=== PATIENT | female | born 2000 | race Caucasian/White ===

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

== ENCOUNTER 2021-08-25 18:08 | Inpatient (IN) | payer BC ==
[2021-08-25] MEDS ORDERED: Tranexamic Acid 1,000 MG in Sodium Chloride 0.9% 100 ML IV PRN (20:18)
[2021-08-25] MEDS ORDERED: Water For Irrigation,Sterile 1,000 ML Container IRR PRN (20:18)
[2021-08-25] MEDS ORDERED: Misoprostol 200 MCG Tab PO PRN (20:18)
[2021-08-25] MEDS ORDERED: Butorphanol 1 MG/ML SDV IVPUSH PRN (20:18)
[2021-08-25] MEDS ORDERED: Nalbuphine 10 MG/1 ML Vial IVPUSH PRN (20:18)
[2021-08-25] MEDS ORDERED: Sodium Chloride 0.9% 10 ML Syringe FLUSH PRN (20:18)
[2021-08-25] MEDS ORDERED: Sodium Chloride 0.9% 2.5 ML Syringe FLUSH PRN (20:18)
[2021-08-25] MEDS ORDERED: Lidocaine 1% 50 ML MDV INJECT PRN (20:18)
[2021-08-25] MEDS ORDERED: Sodium Chloride 0.9% 10 ML SDV IV PRN (20:18)
[2021-08-25] MEDS ORDERED: Methylergonovine 0.2 MG/1 ML Amp IM PRN (20:18)
[2021-08-25] MEDS ORDERED: Ondansetron 4 MG/2 ML SDV IVPUSH PRN (20:18)
[2021-08-25] MEDS ORDERED: Carboprost Tromethamine 250 MCG/1 ML Amp IM PRN (20:18)
[2021-08-25] MEDS ORDERED: Oxytocin/0.9 % Sodium Chloride 30 UNIT/500 ML BAG IV SCH (20:30)
[2021-08-25] MEDS ORDERED: Lactated Ringers 1,000 ML IV SCH (20:30)
[2021-08-25] MEDS ORDERED: Ropivacaine HCl/PF 200 ML ONE (20:42)
--- NOTE | 2021-08-25 21:05 | PCM.LDHP ---
L&D History of Present Illness - General Date of Service: 08/25/21 Admit Problem/Dx: Patient Status Order with Admit Dx/Problem 08/25/21 18:47 Patient Status [ADT] Routine 08/25/21 20:19 Patient Status [ADT] Routine Admission Diagnosis/Problem Admission Diagnosis/Problem Source of Information: Patient History Limitations: Reports: No Limitations - History of Present Illness Introduction:: 21yo at 39w5d GA presented with contractions for the past 7hrs. Denies VB or LOF. Reports good FM. c/b mild intermittent asthma and Rubella nonimmune She is A+, abs screen neg, RPR NR, HIV neg, HBsAg neg, GC/Chlam neg, GBS neg. On arrival, nurse performed a SVE and reported /-3. After 2 hrs of observat ion, SVE was reportedly 5cm. - Related Data Allergies/Adverse Reactions: Allergies Allergy/AdvReac Type Severity Reaction Status Date / Time No Known Allergies Allergy Verified 12/24/14 00:22 Home Medications: Home Meds Methylphenidate [Concerta] 54 mg PO QAM 12/24/14 [History] buPROPion [Wellbutrin XL] 300 mg PO QAM 12/24/14 [History] H&P Review of Systems - Review of Systems: Review Of Systems: See Below General: Reports: No Symptoms HEENT: Reports: No Symptoms Pulmonary: Reports: No Symptoms Cardiovascular: Reports: No Symptoms Gastrointestinal: Reports: No Symptoms Genitourinary: Reports: No Symptoms Musculoskeletal: Reports: No Symptoms Skin: Reports: No Symptoms Psychiatric: Reports: No Symptoms Neurological: Reports: No Symptoms Hematologic/Lymphatic: Reports: No Symptoms Immunologic: Reports: No Symptoms L&D Exam - Exam Exam: See Below - Vital Signs Weight: 82.554 kg - OB Specific Contraction Intensity: Moderate to Strong Movement: Active Heart Tones: Present Heart Rate (FHR) Variability: Moderate (6-25 bpm) Presentation: Vertex Estimated Weight: 7lbs - Alvarez Score Alvarez Score Cervix Position: Midposition Alvarez Score Consistency: Medium Alvarez Score Effacement: 51-70% Alvarez Score Dilation: > 5 cm Alvarez Score 's Station: -3 Alvarez Score Total: 7 - Exam General: Alert, Oriented HEENT: Mucosa Moist & [place] Lungs: Normal Respiratory Effort Cardiovascular: Regular Rate GI/Abdominal Exam: Soft, Non-Tender Extremities: Normal Inspection Psychiatric: Alert, Normal Affect, Normal Mood - Patient Data Lab Results Last 24 hrs: Laboratory Results - last 24 hr 08/25/21 Range/Units 20:10 WBC 10.46 (4.0-11.0) K/uL RBC 3.96 L (4.30-5.90) M/uL Hgb 11.8 L (12.0-16.0) g/dL Hct 34.7 L (36.0-46.0) % MCV 87.6 (80.0-98.0) fL MCH 29.8 (27.0-32.0) pg MCHC 34.0 (31.0-37.0) g/dL RDW Std Deviation 44.3 (28.0-62.0) fl RDW Coeff of Soraida 14 (11.0-15.0) % Plt Count 195 (150-400) K/uL MPV 12.60 H (7.40-12.00) fL Nucleated RBC % 0.0 /100WBC Nucleated RBCs # 0 K/uL Result Diagrams: 08/25/21 20:10 - Problem List (1) Term SNOMED Code(s): 37784113 ICD Code: Z34.90 - ENCNTR FOR SUPRVSN OF NORMAL , UNSP, UNSP TRIMESTER Status: Acute Current Visit: Yes (2) Active labor at term SNOMED Code(s): 46513052 ICD Code: TYP7512 - Status: Acute Current Visit: Yes Problem List Initiated/Reviewed/Updated: Yes Orders Last 24hrs: Active Orders 24 hr Category Date Time Status Patient Status [ADT] Routine ADT 08/25/21 18:47 Active Patient Status [ADT] Routine ADT 08/25/21 20:19 Active Heart Tones [RC] CONTINUOUS Care 08/25/21 20:19 Active Non Stress Test [RC] PER UNIT ROUTINE Care 08/25/21 18:47 Active Non Stress Test [RC] PER UNIT ROUTINE Care 08/25/21 20:19 Active May Shower [RC] ASDIRECTED Care 08/25/21 20:19 Active Notify Provider [RC] PRN Care 08/25/21 20:19 Active Up ad Usha [RC] ASDIRECTED Care 08/25/21 18:47 Active Up ad Usha [RC] ASDIRECTED Care 08/25/21 20:19 Active Vaginal Exam [RC] Click to Edit Care 08/25/21 18:47 Active Vaginal Exam [RC] PRN Care 08/25/21 20:19 Active Vital Signs [RC] PER UNIT ROUTINE Care 08/25/21 18:47 Active Vital Signs [RC] PER UNIT ROUTINE Care 08/25/21 20:19 Active CORONAVIRUS COVID-19 SYLVESTER [MOLEC] Stat Lab 08/25/21 20:15 Received RPR (SYPHILIS SERO) W/ RFLX [REF] Stat Lab 08/25/21 20:10 Received TYPE AND SCREEN [BBK] Stat Lab 08/25/21 20:10 Received Butorphanol [Stadol] Med 08/25/21 20:18 Active 1 mg IVPUSH Q1H PRN Carboprost Tromethamine [Hemabate DS] Med 08/25/21 20:18 Active 250 mcg IM ASDIRECTED PRN Lactated Ringers [Ringers, Lactated] 1,000 ml Med 08/25/21 20:30 Active IV ASDIRECTED Lidocaine 1% [Xylocaine 1%] Med 08/25/21 20:18 Active 50 ml INJECT ONETIME PRN Methylergonovine [Methergine] Med 08/25/21 20:18 Active 0.2 mg IM ASDIRECTED PRN Nalbuphine [Nubain] Med 08/25/21 20:18 Active 10 mg IVPUSH Q1H PRN Ondansetron [Zofran] Med 08/25/21 20:18 Active 4 mg IVPUSH Q4H PRN Oxytocin/0.9 % Sodium Chloride [Oxytocin 30 Unit in NS Med 08/25/21 20:30 Active 0.9% 500 ML Premix] 30 unit in 500 ml IV TITRATE Sodium Chloride 0.9% [Normal Saline] Med 08/25/21 20:18 Active 10 ml IV ASDIRECTED PRN Sodium Chloride 0.9% [Saline Flush] Med 08/25/21 20:18 Active 10 ml FLUSH ASDIRECTED PRN Sodium Chloride 0.9% [Saline Flush] Med 08/25/21 20:18 Active 2.5 ml FLUSH ASDIRECTED PRN Tranexamic Acid [Cyklokapron] 1,000 mg Med 08/25/21 20:18 Active Sodium Chloride 0.9% [Normal Saline] 100 ml IV ONETIME Water For Irrigation,Sterile [Sterile Water for Med 08/25/21 20:18 Active Irrigation] 1,000 ml IRR ASDIRECTED PRN miSOPROStoL [Cytotec] Med 08/25/21 20:18 Active 200 mcg PO ONETIME PRN Scalp Electrode [WOMSER] Per Unit Routine Oth 08/25/21 20:19 Ordered Peripheral IV Insertion Adult [OM.PC] Routine Oth 08/25/21 20:19 Ordered Resuscitation Status Routine Resus Stat 08/25/21 18:46 Ordered Medication Orders Butorphanol Tartrate (Butorphanol 1 Mg/Ml Sdv) 1 mg IVPUSH Q1H PRN PRN Reason: Pain (severe 7-10) Carboprost Tromethamine (Carboprost Tromethamine 250 Mcg/1 Ml Amp) 250 mcg IM ASDIRECTED PRN PRN Reason: Post Hemorrhage Lactated Ringer's (Ringers, Lactated) 1,000 mls @ 150 mls/hr IV ASDIRECTED ANCA Last Admin: 08/25/21 20:45 Dose: 150 mls/hr Documented by: MANAS Oxytocin/Sodium Chloride (Oxytocin 30 Unit In Ns 0.9% 500 Ml Premix) 30 unit in 500 mls @ 999 mls/hr IV TITRATE [facility] Tranexamic Acid 1,000 mg/ (Sodium Chloride) 110 mls @ 660 mls/hr IV ONETIME PRN PRN Reason: Bleeding Lidocaine HCl (Lidocaine 1% 50 Ml Mdv) 50 ml INJECT ONETIME PRN PRN Reason: Laceration repair Methylergonovine Maleate (Methylergonovine 0.2 Mg/1 Ml Amp) 0.2 mg IM ASDIRECTED PRN PRN Reason: Post Hemorrhage Misoprostol (Misoprostol 200 Mcg Tab) 200 mcg PO ONETIME PRN PRN Reason: Post Hemorrhage Nalbuphine HCl (Nalbuphine 10 Mg/1 Ml Vial) 10 mg IVPUSH Q1H PRN PRN Reason: Pain (severe 7-10) Ondansetron HCl (Ondansetron 4 Mg/2 Ml Sdv) 4 mg IVPUSH Q4H PRN PRN Reason: Nausea/Vomiting Sodium Chloride (Sodium Chloride 0.9% 10 Ml Syringe) 10 ml FLUSH ASDIRECTED PRN PRN Reason: Keep Vein Open Sodium Chloride (Sodium Chloride 0.9% 2.5 Ml Syringe) 2.5 ml FLUSH ASDIRECTED PRN PRN Reason: Keep Vein Open Sodium Chloride (Sodium Chloride 0.9% 10 Ml Sdv) 10 ml IV ASDIRECTED PRN PRN Reason: IV Use Sterile Water (Water For Irrigation,Sterile 1,000 Ml Container) 1,000 ml IRR ASDIRECTED PRN PRN Reason: delivery Assessment/Plan Comment:: 21yo at 39w5d [place] admitted in active labor c/b mild intermittent asthma and Rubella nonimmune. Alvarez score of 7, cat 1 tracing. P: Expectant management Epidural PRN Anticipating Will offer MMR vaccine
[2021-08-25] MEDS ORDERED: ePHEDrine 50 MG/ML SDV IVPUSH PRN (21:19)
[2021-08-25] MEDS ORDERED: Ropivacaine/PF 400 MG/200 ML PCA EPIDUR SCH (21:30)
--- NOTE | 2021-08-25 23:08 | PCM.PREANE ---
Preanesthetic Assessment - Procedure Proposed Procedure: Labor Epidural - Anesthesia/Transfusion/Family Hx Anesthesia History: Prior Anesthesia Without Reaction Family History of Anesthesia Reaction: No Transfusion History: No Prior Transfusion(s) - Review of Systems General: No Symptoms Pulmonary: Other (Asthma requiring inhaler use) Cardiovascular: No Symptoms Gastrointestinal: Other (GERD with ) Neurological: No Symptoms Other: Reports: None - Physical Assessment NPO Status Date: 08/25/21 NPO Status Time: 20:00 Height: 1.68 m Weight: 82.554 kg ASA Class: 2 Mental Status: Alert & Oriented x3 Airway Class: Mallampati = 2 Dentition: Reports: Normal Dentition (Toungue ring) Thyro-Mental Finger Breadths: 3 Mouth Opening Finger Breadths: 3 ROM/Head Extension: Full Lungs: Clear to Auscultation, Normal Respiratory Effort Cardiovascular: Regular Rate, Regular Rhythm, No Murmurs - Lab Values: Laboratory Last Values WBC 10.46 K/uL (4.0-11.0) 08/25/21 20:10 RBC 3.96 M/uL (4.30-5.90) L 08/25/21 20:10 Hgb 11.8 g/dL (12.0-16.0) L 08/25/21 20:10 Hct 34.7 % (36.0-46.0) L 08/25/21 20:10 MCV 87.6 fL (80.0-98.0) 08/25/21 20:10 MCH 29.8 pg (27.0-32.0) 08/25/21 20:10 MCHC 34.0 g/dL (31.0-37.0) 08/25/21 20:10 RDW Std Deviation 44.3 fl (28.0-62.0) 08/25/21 20:10 RDW Coeff of Soraida 14 % (11.0-15.0) 08/25/21 20:10 Plt Count 195 K/uL (150-400) 08/25/21 20:10 MPV 12.60 fL (7.40-12.00) H 08/25/21 20:10 Nucleated RBC % 0.0 /100WBC 08/25/21 20:10 Nucleated RBCs # 0 K/uL 08/25/21 20:10 SARS-CoV-2 RNA (SYLVESTER) NEGATIVE (NEGATIVE) 08/25/21 20:15 Blood Type A POSITIVE 08/25/21 20:10 Antibody Screen NEGATIVE 08/25/21 20:10 - Allergies Allergies/Adverse Reactions: Allergies Allergy/AdvReac Type Severity Reaction Status Date / Time No Known Allergies Allergy Verified 12/24/14 00:22 - Blood Blood Available: Yes Product(s) Available: PRBC PreAnesthesia Questionnaire - HOME MEDS Home Medications: Home Meds Methylphenidate [Concerta] 54 mg PO QAM 12/24/14 [History] buPROPion [Wellbutrin XL] 300 mg PO QAM 12/24/14 [History] - CURRENT (IN HOUSE) MEDS Current Meds: Current Medications Butorphanol Tartrate (Butorphanol 1 Mg/Ml Sdv) 1 mg IVPUSH Q1H PRN PRN Reason: Pain (severe 7-10) Carboprost Tromethamine (Carboprost Tromethamine 250 Mcg/1 Ml Amp) 250 mcg IM ASDIRECTED PRN PRN Reason: Post Hemorrhage Ephedrine Sulfate (Ephedrine 50 Mg/Ml Sdv) 10 mg IVPUSH Q1M PRN PRN Reason: Hypotension Lactated Ringer's (Ringers, Lactated) 1,000 mls @ 150 mls/hr IV ASDIRECTED [facility] Last Admin: 08/25/21 20:45 Dose: 150 mls/hr Documented by: Oxytocin/Sodium Chloride (Oxytocin 30 Unit In Ns 0.9% 500 Ml Premix) 30 unit in 500 mls @ 999 mls/hr IV TITRATE [facility] Tranexamic Acid 1,000 mg/ (Sodium Chloride) 110 mls @ 660 mls/hr IV ONETIME PRN PRN Reason: Bleeding Lidocaine HCl (Lidocaine 1% 50 Ml Mdv) 50 ml INJECT ONETIME PRN PRN Reason: Laceration repair Methylergonovine Maleate (Methylergonovine 0.2 Mg/1 Ml Amp) 0.2 mg IM ASDIRECTED PRN PRN Reason: Post Hemorrhage Miscellaneous Medication (Phenylephrine Hcl In 0.9% Nacl 1 Mg/10 Ml Syringe) 0.1 mg IVPUSH Q1M PRN PRN Reason: Hypotension Misoprostol (Misoprostol 200 Mcg Tab) 200 mcg PO ONETIME PRN PRN Reason: Post Hemorrhage Nalbuphine HCl (Nalbuphine 10 Mg/1 Ml Vial) 10 mg IVPUSH Q1H PRN PRN Reason: Pain (severe 7-10) Ondansetron HCl (Ondansetron 4 Mg/2 Ml Sdv) 4 mg IVPUSH Q4H PRN PRN Reason: Nausea/Vomiting Ropivacaine (Ropivacaine/Pf 400 Mg/200 Ml Surgical Corsetier) 400 mg EPIDUR ASDIRECTED ANCA Sodium Chloride (Sodium Chloride 0.9% 10 Ml Syringe) 10 ml FLUSH ASDIRECTED PRN PRN Reason: Keep Vein Open Sodium Chloride (Sodium Chloride 0.9% 2.5 Ml Syringe) 2.5 ml FLUSH ASDIRECTED PRN PRN Reason: Keep Vein Open Sodium Chloride (Sodium Chloride 0.9% 10 Ml Sdv) 10 ml IV ASDIRECTED PRN PRN Reason: IV Use Sterile Water (Water For Irrigation,Sterile 1,000 Ml Container) 1,000 ml IRR ASDIRECTED PRN PRN Reason: delivery Discontinued Medications Ropivacaine (Naropin 0.2%) Confirm Administered Dose 200 mls @ as directed .ROUTE .[facility] Stop: 08/25/21 20:43
--- NOTE | 2021-08-25 23:21 | PCM.SN.2 ---
Time Documentation - Pre-Procedure Checklist Attending Provider Aware: Yes Chart Reviewed: Yes Consent Signed: Yes Labs Reviewed: Yes VS/FHR Reviewed: Yes Patient Identification Confirmation Method: Reports: Chart Visual, Verbal Patient Pt an Appropriate Candidate for the Planned Anesthesia: Yes Alternatives and Risks of Anesthesia Discussed w Pt/Guardian: Yes - Procedure Procedure Start Date: 08/18/21 Procedure Start Time: 20:[address]: Reports: Blood Pressure, Heart Rate, SPO2 Functional IV: Yes Safety Measures: Reports: Patient Identified, Procedure Verified, Site Verified, Procedure Time Out Patient Position: Reports: Sitting Prep: Reports: Betadine x3 Local Anesthetic: Reports: Intradermal Wheal w Lidocaine 1% (3 ml) Regional Placement Level: Reports: L3-4 Needle: Reports: 17 g Touhy Approach: Reports: Midline Technique: Reports: ROSE Glass Syringe ROSE Needle Depth (cm): 4 cm Parasthesia: Reports: None Fluid Obtained: Reports: None Catheter Depth at Skin (cm): 13 cm Test Dose Time: 21:07 Test Dose Medication: Reports: Lidocaine 1.5% w Epinephrine 1:200,000 (5ml) Test Dose Response: Reports: Negative Loading Dose Time: 21:14 Loading Dose Medication: Ropivicaine 0.2% Loading Dose Patient Position: Supine Continuous Infusion Start Time: 21:15 Continuous Infusion Medication: Ropivicaine 0.2% Continuous Infusion Rate: 12 Continuous Infusion PCS Bolus Option: 6 Continuous Infusion Lockout Dose (cc/hr): 20 Patient Position Post Placement: Reports: Supline/LEONARDO Post-procedure Pain Level: 2 Level Achieved: t4 VS and FHR Monitored in Unit Post Placement: Yes Procedure End Date: 08/25/21 Procedure End Time: 21:15 Procedure Comment: Sterile Technique used throughout
--- NOTE | 2021-08-25 23:21 | PCM.POSTAN ---
POST ANESTHESIA ASSESSMENT - MENTAL STATUS Mental Status: Alert, Oriented - RESPIRATORY Respiratory Status: Respiratory Rate WNL, Airway Patent, O2 Saturation Stable - CARDIOVASCULAR CV Status: Pulse Rate WNL, Blood Pressure Stable - GASTROINTESTINAL GI Status: No Symptoms - POST OP HYDRATION Hydration Status: Adequate & Stable
--- NOTE | 2021-08-26 02:38 | PCM.DEL ---
L & D Note - General Info Date of Service: 08/26/21 Mother's Due Date: 08/27/21 - Delivery Note Labor: Spontaneous Delivery Outcome: Livebirth Infant Delivery Method: Spontaneous Vaginal Delivery-Single Presentation: Vertex Nuchal Cord: Present, Reduced Anesthesia Type: Epidural Amniotic Fluid Description: Clear Episiotomy Type: None Laceration: Periurethral Suture type: Vicryl Suture size: 4-0 Placenta: Intact, Spontaneous Cord: 3 Vessels Estimated Blood Loss: 300 Resuscitation Needed: No : Stimulated Score 1 min: 8 Score 5 min: 9 Delivery Comments (Free Text/Narrative):: of a live male, 8lb 6oz and Apgars 8/9. Delivered SUJATA, nuchal cord present and reduced, No meconium. Vertex and body delivered without difficulty. Cord clamped and cut. Nose and mouth bulb suctioned; Baby placed on Mom's abdomen. Placenta delivered spontaneously, intact. Fundus firm, minimal bleeding. Placenta appears intact with 3 vessel cord. Perineum and vagina inspected small periurethral laceration repaired with 4-0 suture suture in the usual fashion. EBL 300cc. Hemostasis. Patient tolerated procedure well, recovering in LDR. Infant by her side. - General Info Date of Service: 08/26/21 Admission Dx/Problem (Free Text): Patient Status Order with Admit Dx/Problem 08/25/21 18:47 Patient Status [ADT] Routine 08/25/21 20:19 Patient Status [ADT] Routine Admission Diagnosis/Problem Admission Diagnosis/Problem Subjective Update: Mom and baby are doing well. Functional Status: Reports: Pain Controlled - Review of Systems General: Reports: No Symptoms HEENT: Reports: No Symptoms Pulmonary: Reports: No Symptoms Cardiovascular: Reports: No Symptoms Gastrointestinal: Reports: No Symptoms Genitourinary: Reports: No Symptoms Musculoskeletal: Reports: No Symptoms Skin: Reports: No Symptoms Psychiatric: Reports: No Symptoms - Patient Data Weight - Most Recent: 82.554 kg Lab Results Last 24 Hours: Laboratory Results - last 24 hr 08/25/21 08/25/21 08/25/21 Range/Units 20:10 20:10 20:15 WBC 10.46 (4.0-11.0) K/uL RBC 3.96 L (4.30-5.90) M/uL Hgb 11.8 L (12.0-16.0) g/dL Hct 34.7 L (36.0-46.0) % MCV 87.6 (80.0-98.0) fL MCH 29.8 (27.0-32.0) pg MCHC 34.0 (31.0-37.0) g/dL RDW Std Deviation 44.3 (28.0-62.0) fl RDW Coeff of Soraida 14 (11.0-15.0) % Plt Count 195 (150-400) K/uL MPV 12.60 H (7.40-12.00) fL Nucleated RBC % 0.0 /100WBC Nucleated RBCs # 0 K/uL SARS-CoV-2 RNA (SYLVESTER) NEGATIVE (NEGATIVE) Blood Type A POSITIVE Antibody Screen NEGATIVE Med Orders - Current: Current Medications Butorphanol Tartrate (Butorphanol 1 Mg/Ml Sdv) 1 mg IVPUSH Q1H PRN PRN Reason: Pain (severe 7-10) Carboprost Tromethamine (Carboprost Tromethamine 250 Mcg/1 Ml Amp) 250 mcg IM ASDIRECTED PRN PRN Reason: Post Hemorrhage Ephedrine Sulfate (Ephedrine 50 Mg/Ml Sdv) 10 mg IVPUSH Q1M PRN PRN Reason: Hypotension Lactated Ringer's (Ringers, Lactated) 1,000 mls @ 150 mls/hr IV ASDIRECTED [facility] Last Admin: 08/25/21 20:45 Dose: 150 mls/hr Documented by: Oxytocin/Sodium Chloride (Oxytocin 30 Unit In Ns 0.9% 500 Ml Premix) 30 unit in 500 mls @ 999 mls/hr IV TITRATE [facility] Last Admin: 08/26/21 01:50 Dose: 999 mls/hr Documented by: Tranexamic Acid 1,000 mg/ (Sodium Chloride) 110 mls @ 660 mls/hr IV ONETIME PRN PRN Reason: Bleeding Lidocaine HCl (Lidocaine 1% 50 Ml Mdv) 50 ml INJECT ONETIME PRN PRN Reason: Laceration repair Methylergonovine Maleate (Methylergonovine 0.2 Mg/1 Ml Amp) 0.2 mg IM ASDIRECTED PRN PRN Reason: Post Hemorrhage Miscellaneous Medication (Phenylephrine Hcl In 0.9% Nacl 1 Mg/10 Ml Syringe) 0.1 mg IVPUSH Q1M PRN PRN Reason: Hypotension Misoprostol (Misoprostol 200 Mcg Tab) 200 mcg PO ONETIME PRN PRN Reason: Post Hemorrhage Nalbuphine HCl (Nalbuphine 10 Mg/1 Ml Vial) 10 mg IVPUSH Q1H PRN PRN Reason: Pain (severe 7-10) Ondansetron HCl (Ondansetron 4 Mg/2 Ml Sdv) 4 mg IVPUSH Q4H PRN PRN Reason: Nausea/Vomiting Ropivacaine (Ropivacaine/Pf 400 Mg/200 Ml Drug Abuse Counselor) 400 mg EPIDUR ASDIRECTED [facility] Sodium Chloride (Sodium Chloride 0.9% 10 Ml Syringe) 10 ml FLUSH ASDIRECTED PRN PRN Reason: Keep Vein Open Sodium Chloride (Sodium Chloride 0.9% 2.5 Ml Syringe) 2.5 ml FLUSH ASDIRECTED PRN PRN Reason: Keep Vein Open Sodium Chloride (Sodium Chloride 0.9% 10 Ml Sdv) 10 ml IV ASDIRECTED PRN PRN Reason: IV Use Sterile Water (Water For Irrigation,Sterile 1,000 Ml Container) 1,000 ml IRR ASDIRECTED PRN PRN Reason: delivery Discontinued Medications Ropivacaine (Naropin 0.2%) Confirm Administered Dose 200 mls @ as directed .ROUTE .[facility] Stop: 08/25/21 20:43 - Problem List & Annotations (1) Term SNOMED Code(s): 17481820 Code(s): Z34.90 - ENCNTR FOR SUPRVSN OF NORMAL , UNSP, UNSP TRIMESTER Status: Acute Current Visit: Yes (2) Active labor at term SNOMED Code(s): 63527067 Code(s): APR6937 - Status: Acute Current Visit: Yes (3) (normal spontaneous vaginal delivery) SNOMED Code(s): 42861522, 814099955 Code(s): O80 - ENCOUNTER FOR FULL-TERM UNCOMPLICATED DELIVERY Status: Acute Current Visit: Yes - Problem List Review Problem List Initiated/Reviewed/Updated: Yes - My Orders Last 24 Hours: My Active Orders 08/25/21 18:46 Resuscitation Status Routine 08/25/21 18:47 Patient Status [ADT] Routine Non Stress Test [RC] PER UNIT ROUTINE Up ad Usha [RC] ASDIRECTED Vaginal Exam [RC] Click to Edit Vital Signs [RC] PER UNIT ROUTINE 08/25/21 20:10 RPR (SYPHILIS SERO) W/ RFLX [REF] Stat 08/25/21 20:18 Butorphanol [Stadol] 1 mg IVPUSH Q1H PRN Carboprost Tromethamine [Hemabate DS] 250 mcg IM ASDIRECTED PRN Lidocaine 1% [Xylocaine 1%] 50 ml INJECT ONETIME PRN Methylergonovine [Methergine] 0.2 mg IM ASDIRECTED PRN Nalbuphine [Nubain] 10 mg IVPUSH Q1H PRN Ondansetron [Zofran] 4 mg IVPUSH Q4H PRN Sodium Chloride 0.9% [Normal Saline] 10 ml IV ASDIRECTED PRN Sodium Chloride 0.9% [Saline Flush] 10 ml FLUSH ASDIRECTED PRN Sodium Chloride 0.9% [Saline Flush] 2.5 ml FLUSH ASDIRECTED PRN Tranexamic Acid [Cyklokapron] 1,000 mg Sodium Chloride 0.9% [Normal Saline] 100 ml IV ONETIME Water For Irrigation,Sterile [Sterile Water for Irrigation] 1,000 ml IRR ASDIRECTED PRN miSOPROStoL [Cytotec] 200 mcg PO ONETIME PRN 08/25/21 20:19 Patient Status [ADT] Routine Heart Tones [RC] CONTINUOUS Non Stress Test [RC] PER UNIT ROUTINE May Shower [RC] ASDIRECTED Notify Provider [RC] PRN Up ad Usha [RC] ASDIRECTED Vaginal Exam [RC] PRN Vital Signs [RC] PER UNIT ROUTINE Scalp Electrode [WOMSER] Per Unit Routine Peripheral IV Insertion Adult [OM.PC] Routine 08/25/21 20:30 Lactated Ringers [Ringers, Lactated] 1,000 ml IV ASDIRECTED Oxytocin/0.9 % Sodium Chloride [Oxytocin 30 Unit in NS 0.9% 500 ML Premix] 30 unit in 500 ml IV TITRATE - Plan Plan:: 21yo G1 now P1 s/p uncomplicated at 39w6d [place] c/b mild intermittent asthma and Rubella nonimmune. Mom and baby are recovering well. P: Routine care MMR vaccine PRN
[2021-08-26] MEDS ORDERED: Witch Hazel Medicated Pads 40/Jar TOP ONE (04:09)
[2021-08-26] MEDS ORDERED: Benzocaine/Menthol 20%-0.5% Spray 78 GM Cannister ONE (04:09)
[2021-08-26] MEDS ORDERED: Witch Hazel Medicated Pads 40/Jar TOP PRN (09:51)
[2021-08-26] MEDS ORDERED: Benzocaine/Menthol 20%-0.5% Spray 78 GM Cannister TOP PRN (09:51)
[2021-08-26] MEDS ORDERED: Bisacodyl 10 MG Supp RECTAL PRN (09:51)
[2021-08-26] MEDS ORDERED: Lanolin 100% Cream 7 GM Tube TOP PRN (09:51)
[2021-08-26] MEDS ORDERED: Acetaminophen 500 MG Tab PO PRN (09:51)
[2021-08-26] MEDS ORDERED: oxyCODONE 5 MG Tab PO PRN (09:51)
[2021-08-26] MEDS ORDERED: Docusate Sodium 100 MG Cap PO PRN (09:51)
[2021-08-26] MEDS ORDERED: Ibuprofen 400 MG Tab PO PRN (09:51)
[2021-08-26] MEDS: Ibuprofen 800 MG Tab PO PRN ×2 (10:26→22:11)
[2021-08-26] MEDS: Acetaminophen 500 MG Tab PO PRN ×3 (10:26→22:10)
--- NOTE | 2021-08-26 13:30 | PCM48HPAN ---
Post Anesthesia Note - EVALUATION WITHIN 48HRS OF ANESTHETIC Vital Signs in Normal Range: Yes Patient Participated in Evaluation: Yes Respiratory Function Stable: Yes Airway Patent: Yes Cardiovascular Function Stable: Yes Hydration Status Stable: Yes Pain Control Satisfactory: Yes Nausea and Vomiting Control Satisfactory: Yes Mental Status Recovered: Yes Vital Signs: Last Vital Signs Temp 36.6 C 08/26/21 09:00 Pulse 67 08/26/21 09:00 Resp 18 08/26/21 09:00 BP 148/92 H 08/26/21 09:10 Pulse Ox 97 08/26/21 09:00
[2021-08-27] MEDS: Ibuprofen 800 MG Tab PO PRN (11:01)
[2021-08-27] MEDS: Acetaminophen 500 MG Tab PO PRN (11:02)
--- NOTE | 2021-08-27 13:38 | PCM.PNPP ---
- General Info Date of Service: 08/27/21 Admission Dx/Problem (Free Text): Patient Status Order with Admit Dx/Problem 08/25/21 18:47 Patient Status [ADT] Routine 08/25/21 20:19 Patient Status [ADT] Routine Admission Diagnosis/Problem Admission Diagnosis/Problem Subjective Update: 21yo G1 now P1 s/p uncomplicated at 39w6d [place] Mom is doing well. Ambulating w/o dizziness. Voiding and passing gas. Tolerating PO without nausea or vomiting. Mild light bleeding Functional Status: Reports: Pain Controlled - Review of Systems General: Reports: No Symptoms HEENT: Reports: No Symptoms Pulmonary: Reports: No Symptoms Cardiovascular: Reports: No Symptoms Gastrointestinal: Reports: No Symptoms Genitourinary: Reports: No Symptoms Musculoskeletal: Reports: No Symptoms Skin: Reports: No Symptoms Neurological: Reports: No Symptoms Psychiatric: Reports: No Symptoms - General Info Date of Service: 08/27/21 - Patient Data Vital Signs - Most Recent: Last Vital Signs Temp 97.2 F 08/27/21 07:47 Pulse 86 08/27/21 07:47 Resp 18 08/27/21 07:47 BP 135/83 08/27/21 07:47 Pulse Ox 98 08/27/21 07:47 Weight - Most Recent: 82.554 kg Lab Results - Last 24 Hours: Laboratory Results - last 24 hr 08/25/21 08/27/21 Range/Units 20:10 05:15 Hgb 10.5 L (12.0-16.0) g/dL Hct 31.4 L (36.0-46.0) % RPR Non-Reac (Non-Reac) Med Orders - Current: Current Medications Acetaminophen (Acetaminophen 500 Mg Tab) 500 mg PO Q4H PRN PRN Reason: Pain (mild 1-3) Acetaminophen (Acetaminophen 500 Mg Tab) 1,000 mg PO Q4H PRN PRN Reason: Pain (mild 1-3) Last Admin: 08/27/21 11:02 Dose: 1,000 mg Documented by: Benzocaine/Menthol (Benzocaine/Menthol 20%-0.5% [place] 78 Gm Cannister) 78 gm TOP ASDIRECTED PRN PRN Reason: Perineal Comfort Measure Bisacodyl (Bisacodyl 10 Mg Supp) 10 mg RECTAL ONETIME PRN PRN Reason: Constipation Butorphanol Tartrate (Butorphanol 1 Mg/Ml Sdv) 1 mg IVPUSH Q1H PRN PRN Reason: Pain (severe 7-10) Carboprost Tromethamine (Carboprost Tromethamine 250 Mcg/1 Ml Amp) 250 mcg IM ASDIRECTED PRN PRN Reason: Post Hemorrhage Docusate Sodium (Docusate Sodium 100 Mg Cap) 100 mg PO Q12H PRN PRN Reason: Constipation Emollient Ointment (Lanolin 100% Cream 7 Gm Tube) 0 gm TOP ASDIRECTED PRN PRN Reason: Sore Nipples Ephedrine Sulfate (Ephedrine 50 Mg/Ml Sdv) 10 mg IVPUSH Q1M PRN PRN Reason: Hypotension Lactated Ringer's (Ringers, Lactated) 1,000 mls @ 150 mls/hr IV ASDIRECTED [facility] Last Admin: 08/25/21 20:45 Dose: 150 mls/hr Documented by: Oxytocin/Sodium Chloride (Oxytocin 30 Unit In Ns 0.9% 500 Ml Premix) 30 unit in 500 mls @ 999 mls/hr IV TITRATE [facility] Last Admin: 08/26/21 01:50 Dose: 999 mls/hr Documented by: Tranexamic Acid 1,000 mg/ (Sodium Chloride) 110 mls @ 660 mls/hr IV ONETIME PRN PRN Reason: Bleeding Ibuprofen (Ibuprofen 400 Mg Tab) 400 mg PO Q4H PRN PRN Reason: Pain (mild 1-3) Ibuprofen (Ibuprofen 800 Mg Tab) 800 mg PO Q6H PRN PRN Reason: Cramping Last Admin: 08/27/21 11:01 Dose: 800 mg Documented by: Lidocaine HCl (Lidocaine 1% 50 Ml Mdv) 50 ml INJECT ONETIME PRN PRN Reason: Laceration repair Methylergonovine Maleate (Methylergonovine 0.2 Mg/1 Ml Amp) 0.2 mg IM ASDIRECTED PRN PRN Reason: Post Hemorrhage Miscellaneous Medication (Phenylephrine Hcl In 0.9% Nacl 1 Mg/10 Ml Syringe) 0.1 mg IVPUSH Q1M PRN PRN Reason: Hypotension Misoprostol (Misoprostol 200 Mcg Tab) 200 mcg PO ONETIME PRN PRN Reason: Post Hemorrhage Nalbuphine HCl (Nalbuphine 10 Mg/1 Ml Vial) 10 mg IVPUSH Q1H PRN PRN Reason: Pain (severe 7-10) Ondansetron HCl (Ondansetron 4 Mg/2 Ml Sdv) 4 mg IVPUSH Q4H PRN PRN Reason: Nausea/Vomiting Oxycodone HCl (Oxycodone 5 Mg Tab) 5 mg PO Q2H PRN PRN Reason: Pain (severe 7-10) Ropivacaine (Ropivacaine/Pf 400 Mg/200 Ml Drain Tile Press Operator) 400 mg EPIDUR ASDIRECTED ANCA Sodium Chloride (Sodium Chloride 0.9% 10 Ml Syringe) 10 ml FLUSH ASDIRECTED PRN PRN Reason: Keep Vein Open Sodium Chloride (Sodium Chloride 0.9% 2.5 Ml Syringe) 2.5 ml FLUSH ASDIRECTED PRN PRN Reason: Keep Vein Open Sodium Chloride (Sodium Chloride 0.9% 10 Ml Sdv) 10 ml IV ASDIRECTED PRN PRN Reason: IV Use Sterile Water (Water For Irrigation,Sterile 1,000 Ml Container) 1,000 ml IRR ASDIRECTED PRN PRN Reason: delivery Witch Vanda (Witch Vanda Medicated Pads 40/Jar) 1 pad TOP ASDIRECTED PRN PRN Reason: comfort care Discontinued Medications Benzocaine/Menthol (Benzocaine/Menthol 20%-0.5% [place] 78 Gm Cannister) Confirm Administered Dose 78 gm .ROUTE .STK-MED ONE Stop: 08/26/21 04:10 Last Admin: 08/26/21 04:19 Dose: 1 canister Documented by: Ropivacaine (Naropin 0.2%) Confirm Administered Dose 200 mls @ as directed .ROUTE .STK-MED ONE Stop: 08/25/21 20:43 Witch Vanda (Witch Vanda Medicated Pads 40/Jar) Confirm Administered Dose 1 pad TOP .STK-MED ONE Stop: 08/26/21 04:10 Last Admin: 08/26/21 04:19 Dose: 1 pad Documented by: - Interaction Disposition, : at Bedside Feeding: Breastfed ; Nursed Well Support Person: Significant Other - Recovery Exam Fundal Tone: Firm Fundal Level: 1 Fingerbreadths Below Umbilicus Fundal Placement: Midline Lochia Amount: Scant Lochia Color: Rubra/Red Perineum Description: Intact, Minimal Bruising/Swelling Episiotomy/Laceration: None Bladder Status: Voiding Urinary Elimination: Voided - Exam General: Alert, Oriented Lungs: Normal Respiratory Effort Cardiovascular: Regular Rate GI/Abdominal Exam: Non-Tender Psy/Mental Status: Alert, Normal Affect, Normal Mood - Problem List & Annotations (1) Term SNOMED Code(s): 08092561 Code(s): Z34.90 - ENCNTR FOR SUPRVSN OF NORMAL , UNSP, UNSP TRIMESTER Status: Acute Current Visit: Yes (2) (normal spontaneous vaginal delivery) SNOMED Code(s): 52034397, 944183461 Code(s): O80 - ENCOUNTER FOR FULL-TERM UNCOMPLICATED DELIVERY Status: Acute Current Visit: Yes - Problem List Review Problem List Initiated/Reviewed/Updated: Yes - Plan Plan:: 21yo G1 now P1 s/p uncomplicated at 39w6d [place] c/b mild intermittent asthma and Rubella nonimmune. Mom and baby are doing well. P: Routine care MMR vaccine today. Patient agreeable
--- NOTE | 2021-08-27 14:35 | PCM.DCSUM1 ---
Discharge Summary - Hospital Course Diagnosis: Stroke: No - Discharge Data Discharge Date: 08/27/21 Discharge Disposition: Home, Self-Care 01 Condition: Good - Referral to Home Health Primary Care Physician: PCP None - Patient Instructions Diet: Usual Diet as Tolerated Activity: As Tolerated Driving: Do Not Drive Showering/Bathing: May Shower - Discharge Plan Home Medications: Home Meds Methylphenidate [Concerta] 54 mg PO QAM 12/24/14 [History] buPROPion [Wellbutrin XL] 300 mg PO QAM 12/24/14 [History] Patient Handouts: Baby Blues, Care After Vaginal Delivery Referrals: Nayeli Levy MD [Physician] - 09/26/21 1:00 pm (You may bring your with to your appointment. Bring insurance and ID cards. Masks are required.) - Discharge Summary/Plan Comment DC Time >30 min.: Yes Total # of Minutes for Discharge Time: 30 - General Info Date of Service: 08/27/21 Functional Status: Reports: Pain Controlled - Review of Systems General: Reports: No Symptoms HEENT: Reports: No Symptoms Pulmonary: Reports: No Symptoms Cardiovascular: Reports: No Symptoms Gastrointestinal: Reports: No Symptoms Genitourinary: Reports: No Symptoms Musculoskeletal: Reports: No Symptoms Skin: Reports: No Symptoms Neurological: Reports: No Symptoms Psychiatric: Reports: No Symptoms - Patient Data Vitals - Most Recent: Last Vital Signs Temp 36.2 C 08/27/21 07:47 Pulse 86 08/27/21 07:47 Resp 18 08/27/21 07:47 BP 135/83 08/27/21 07:47 Pulse Ox 98 08/27/21 07:47 Weight - Most Recent: 82.554 kg Lab Results - Last 24 hrs: Laboratory Results - last 24 hr 08/25/21 08/27/21 Range/Units 20:10 05:15 Hgb 10.5 L (12.0-16.0) g/dL Hct 31.4 L (36.0-46.0) % RPR Non-Reac (Non-Reac) Med Orders - Current: Current Medications Acetaminophen (Acetaminophen 500 Mg Tab) 500 mg PO Q4H PRN PRN Reason: Pain (mild 1-3) Acetaminophen (Acetaminophen 500 Mg Tab) 1,000 mg PO Q4H PRN PRN Reason: Pain (mild 1-3) Last Admin: 08/27/21 11:02 Dose: 1,000 mg Documented by: Benzocaine/Menthol (Benzocaine/Menthol 20%-0.5% [place] 78 Gm Cannister) 78 gm TOP ASDIRECTED PRN PRN Reason: Perineal Comfort Measure Bisacodyl (Bisacodyl 10 Mg Supp) 10 mg RECTAL ONETIME PRN PRN Reason: Constipation Butorphanol Tartrate (Butorphanol 1 Mg/Ml Sdv) 1 mg IVPUSH Q1H PRN PRN Reason: Pain (severe 7-10) Carboprost Tromethamine (Carboprost Tromethamine 250 Mcg/1 Ml Amp) 250 mcg IM ASDIRECTED PRN PRN Reason: Post Hemorrhage Docusate Sodium (Docusate Sodium 100 Mg Cap) 100 mg PO Q12H PRN PRN Reason: Constipation Emollient Ointment (Lanolin 100% Cream 7 Gm Tube) 0 gm TOP ASDIRECTED PRN PRN Reason: Sore Nipples Ephedrine Sulfate (Ephedrine 50 Mg/Ml Sdv) 10 mg IVPUSH Q1M PRN PRN Reason: Hypotension Lactated Ringer's (Ringers, Lactated) 1,000 mls @ 150 mls/hr IV ASDIRECTED [facility] Last Admin: 08/25/21 20:45 Dose: 150 mls/hr Documented by: Oxytocin/Sodium Chloride (Oxytocin 30 Unit In Ns 0.9% 500 Ml Premix) 30 unit in 500 mls @ 999 mls/hr IV TITRATE [facility] Last Admin: 08/26/21 01:50 Dose: 999 mls/hr Documented by: Tranexamic Acid 1,000 mg/ (Sodium Chloride) 110 mls @ 660 mls/hr IV ONETIME PRN PRN Reason: Bleeding Ibuprofen (Ibuprofen 400 Mg Tab) 400 mg PO Q4H PRN PRN Reason: Pain (mild 1-3) Ibuprofen (Ibuprofen 800 Mg Tab) 800 mg PO Q6H PRN PRN Reason: Cramping Last Admin: 08/27/21 11:01 Dose: 800 mg Documented by: Lidocaine HCl (Lidocaine 1% 50 Ml Mdv) 50 ml INJECT ONETIME PRN PRN Reason: Laceration repair Methylergonovine Maleate (Methylergonovine 0.2 Mg/1 Ml Amp) 0.2 mg IM ASDIRECTED PRN PRN Reason: Post Hemorrhage Miscellaneous Medication (Phenylephrine Hcl In 0.9% Nacl 1 Mg/10 Ml Syringe) 0.1 mg IVPUSH Q1M PRN PRN Reason: Hypotension Misoprostol (Misoprostol 200 Mcg Tab) 200 mcg PO ONETIME PRN PRN Reason: Post Hemorrhage Nalbuphine HCl (Nalbuphine 10 Mg/1 Ml Vial) 10 mg IVPUSH Q1H PRN PRN Reason: Pain (severe 7-10) Ondansetron HCl (Ondansetron 4 Mg/2 Ml Sdv) 4 mg IVPUSH Q4H PRN PRN Reason: Nausea/Vomiting Oxycodone HCl (Oxycodone 5 Mg Tab) 5 mg PO Q2H PRN PRN Reason: Pain (severe 7-10) Ropivacaine (Ropivacaine/Pf 400 Mg/200 Ml Manager Laboratory) 400 mg EPIDUR ASDIRECTED [facility] Sodium Chloride (Sodium Chloride 0.9% 10 Ml Syringe) 10 ml FLUSH ASDIRECTED PRN PRN Reason: Keep Vein Open Sodium Chloride (Sodium Chloride 0.9% 2.5 Ml Syringe) 2.5 ml FLUSH ASDIRECTED PRN PRN Reason: Keep Vein Open Sodium Chloride (Sodium Chloride 0.9% 10 Ml Sdv) 10 ml IV ASDIRECTED PRN PRN Reason: IV Use Sterile Water (Water For Irrigation,Sterile 1,000 Ml Container) 1,000 ml IRR ASDIRECTED PRN PRN Reason: delivery Witch Vanda (Witch Vanda Medicated Pads 40/Jar) 1 pad TOP ASDIRECTED PRN PRN Reason: comfort care Discontinued Medications Benzocaine/Menthol (Benzocaine/Menthol 20%-0.5% [place] 78 Gm Cannister) Confirm Administered Dose 78 gm .ROUTE .STK-MED ONE Stop: 08/26/21 04:10 Last Admin: 08/26/21 04:19 Dose: 1 canister Documented by: Ropivacaine (Naropin 0.2%) Confirm Administered Dose 200 mls @ as directed .ROUTE .STK-MED ONE Stop: 08/25/21 20:43 Witch Vanda (Witch Vanda Medicated Pads 40/Jar) Confirm Administered Dose 1 pad TOP .STK-MED ONE Stop: 08/26/21 04:10 Last Admin: 08/26/21 04:19 Dose: 1 pad Documented by: - Exam General: Reports: Alert, Oriented HEENT: Reports: Pupils Equal, Pupils Reactive, EOMI, Mucous Membr. Moist/[employer] Neck: Reports: Supple Lungs: Reports: Clear to Auscultation, Normal Respiratory Effort Cardiovascular: Reports: Regular Rate, Regular Rhythm GI/Abdominal Exam: Normal Bowel Sounds, Soft, Non-Tender, No Organomegaly, No Distention, No Abnormal Bruit, No Mass, Pelvis Stable (Female) Exam: Normal External Exam, Normal Speculum Exam, Normal Bimanual Exam Rectal (Female) Exam: Normal Exam, Normal Rectal Tone Back Exam: Reports: Normal Inspection, Full Range of Motion Extremities: Normal Inspection, Normal Range of Motion, Non-Tender, No Pedal Edema, Normal Capillary Refill Skin: Reports: Warm, Dry, Intact Wound/Incisions: Reports: Healing Well Neurological: Reports: No New Focal Deficit Psy/Mental Status: Reports: Alert, Normal Affect, Normal Mood
[2021-08-27 16:18] VITALS: BP 134/93; PULSE 68
== END 2021-08-27 23:55 | disposition home or self-care (01) | DRG 560 ==
LOC: MW.OBCHECK 18:08 → MW.OB 18:10 → MW.OBCHECK 20:19 → OBSVTOIN 08-26 01:50 → MW.OB 08-26 04:30
PROVIDERS: ADMIT Obstetrics & Gynecology Obstetrics; ATTEND Obstetrics & Gynecology Obstetrics
PROC: 10E0XZZ Delivery of Products of Conception, External Approach (ICD-10-PCS; principal; 2021-08-26)
PROC: 0UQMXZZ Repair Vulva, External Approach (ICD-10-PCS; 2021-08-26)
PROC: 3E0R3BZ Introduction of Anesthetic Agent into Spinal Canal, Percutaneous Approach (ICD-10-PCS; 2021-08-26)
PROC: 00HU33Z Insertion of Infusion Device into Spinal Canal, Percutaneous Approach (ICD-10-PCS; 2021-08-26)
DX: O99.52 Diseases of the respiratory system complicating childbirth (principal); J45.20 Mild intermittent asthma, uncomplicated; O71.82 Other specified trauma to perineum and vulva; Z20.822 Contact with and (suspected) exposure to COVID-19; Z37.0 Single live birth; Z3A.39 39 weeks gestation of pregnancy
CPT/HCPCS: 36415; 59025; 59409; 85014; 85018; 85027; 86592; 86850; 86900; 86901; A9270-GY; J2590; J2795; J7120; U0002

== ENCOUNTER 2024-09-06 10:02 | Day surgery (SDC) | payer BC ==
[2024-09-06] MEDS: Lactated Ringers 1,000 ML IV SCH (10:28)
[2024-09-06] MEDS ORDERED: Lidocaine 2% 5 ML SDV ONE (11:25)
[2024-09-06] MEDS ORDERED: Propofol 200 MG/20 ML SDV ONE (11:26)
[2024-09-06] MEDS ORDERED: dexmedeTOMIDine HCl 200 MCG/2 ML SDV ONE (11:45)
[2024-09-06] MEDS ORDERED: Lactated Ringers 1,000 ML IV SCH (12:30)
[2024-09-06 12:40] VITALS: BP 109/67; PULSE 67
== END 2024-09-06 12:45 | disposition home or self-care (01) ==
LOC: MW.SDS 10:02
PROVIDERS: ATTEND Surgery
DX: K29.50 Unspecified chronic gastritis without bleeding (principal); K20.90 Esophagitis, unspecified without bleeding; R13.10 Dysphagia, unspecified; K44.9 Diaphragmatic hernia without obstruction or gangrene; F41.9 Anxiety disorder, unspecified; F32.A Depression, unspecified; J45.909 Unspecified asthma, uncomplicated; F17.290 Nicotine dependence, other tobacco product, uncomplicated; Z79.899 Other long term (current) drug therapy
CPT/HCPCS: 43239; 81025; J2704; J7120; 00731; J3490